=== PATIENT | female | born 1980 | race African-American/Black ===

== ENCOUNTER 2018-11-16 03:51 | Emergency (ER) | payer OTHER ==
[~2018-11-16] VITALS: Ht 172.7 cm; Wt 62.6 kg
[2018-11-16] MEDS ORDERED: ASPIRIN (04:07)
[2018-11-16] MEDS ORDERED: CYCLOBENZAPRINE 5 MG TABLET (04:07)
[2018-11-16] MEDS ORDERED: AMLODIPINE BESYLATE 10 MG TAB (04:07)
--- NOTE | 2018-11-16 04:10 | NUR ---
Pt ambulated in ER with stable gait with the c/o right arm laceration. Pt states that she was caught by a gate 1 hour [employer]. Radial pulse present, capillary refill <2 seconds, sensation present and strength WNL. Pt is AAO x 4 and speaking in complete sentences. Safe environment implemented.
[2018-11-16] MEDS ORDERED: TDAP DIPH,PERTUSS,TET VAC/PF 0.5 ML DISP.SYRIN IM ONE ×2 (04:15→04:29)
[2018-11-16] MEDS ORDERED: LIDOCAINE 2%-EPI 1:100,000 20 ML VIAL TP ONE (04:15)
[2018-11-16 04:38] LABS: *URINE HCG, QUAL NEGATIVE (NEGATIVE)
--- NOTE | 2018-11-16 05:25 | NUR ---
Patient shoulder sling placed and made aware of after care instructions. Patient discharged to home in stable conditon. Written and verbal after care instructions given. Patient verbalizes understanding of instructions. Patient ambulated out of ER with stable gait.
[2018-11-16 05:36] VITALS: BP 151/90
== END 2018-11-16 05:25 | disposition home or self-care (01) ==
LOC: ER 03:52
DX: S51.011A Laceration without foreign body of right elbow, initial encounter (principal); F17.290 Nicotine dependence, other tobacco product, uncomplicated; Z79.82 Long term (current) use of aspirin; Z79.899 Other long term (current) drug therapy; W26.8XXA Contact with other sharp object(s), not elsewhere classified, initial encounter; Y93.89 Activity, other specified; Y92.89 Other specified places as the place of occurrence of the external cause; Y99.8 Other external cause status
CPT/HCPCS: 12002; 84703; 90471; 90715; 99283; 99406; J3490; A4217; A4663